=== PATIENT | female | born 1995 | race Caucasian/White ===

== ENCOUNTER 2018-08-30 03:16 | Emergency (ER) | payer OTHER, SELFPAY ==
[2018-08-30 03:31] VITALS: BP 145/84; PULSE 88; RESP 14; TEMP 36.5; O2SAT 98; BMI 24.3
[2018-08-30] MEDS: predniSONE 20 MG TABLET 40 MG PO (03:47)
[2018-08-30] MEDS: CYCLOBENZAPRINE 10 MG PREPACK 1 BOTTLE MISC (03:47)
--- NOTE | 2018-08-30 03:57 | ED_ITS ---
HPI - Back Pain/Injury General Chief Complaint: Back Pain/Injury Stated Complaint: hurt lower left back at work Time Seen by Provider: 08/30/18 03:25 Source: patient Mode of arrival: ambulatory Limitations: no limitations History of Present Illness HPI Narrative: 23-year-old female, smoker her complains of a work related injury resulting back pain. She states that she was lifting a patient at work and felt a pop in her back and a son radiation of pain down her left leg. She denies numbness, tingling or weakness. She denies any trouble bowel or bladder control. She denies any foot drop. She had a similar episode in April and received physical therapy for a few aches and then felt much better. MD Complaint: back pain Onset (ago): minute(s) Duration: constant Similar Symptoms Previously: Yes Location: lumbar spine Severity: moderate Quality: burning and stabbing Radiation: left leg Severity scale (1-10): 7 Relieving factors: immobilization Exacerbating factors: movement Context: while lifting Associated symptoms: denies other symptoms Treatments prior to arrival: NSAIDS Related Data Previous Rx's Medication Instructions Recorded diclofenac sodium 50 mg 50 mg PO BID #60 tab 05/21/18 tablet,delayed release methocarbamol 500 mg tablet 500 mg PO Q6H #30 tab 05/21/18 cyclobenzaprine 10 mg PO TID PRN #10 tab 08/30/18 ketorolac 10 mg PO Q6H PRN #14 tab 08/30/18 prednisone See Label Instructions .ROUTE 08/30/18 .COMPLEX #30 tab Allergies Allergy/AdvReac Type Severity Reaction Status Date / Time No Known Drug Allergies Allergy Unverified 05/21/18 15:52 Review of Systems Review of Systems All systems reviewed & are unremarkable except as noted in HPI and below Constitutional Denies chills, Denies fever(s), Denies lethargy and Denies weakness Eyes Denies change in vision, Denies eye discharge, Denies irritation and Denies loss of vision ENT Ears, Nose, Mouth, and Throat: Denies change in voice, Denies neck pain and Denies sore throat Cardiovascular Denies chest pain, Denies irregular heart rhythm, Denies lightheadedness, Denies palpitations, Denies dyspnea, Denies dyspnea on exertion and Denies orthopnea Respiratory Denies cough, Denies dyspnea, Denies dyspnea on exertion and Denies wheezing Gastrointestinal Gastrointestinal: Denies abdominal pain, Denies change in bowel habits, Denies diarrhea, Denies nausea and Denies vomiting Genitourinary Denies hematuria, Denies flank pain, Denies urinary incontinence and Denies urinary urgency Musculoskeletal Reports back pain and Denies neck pain Integumentary/Breasts Denies pruritus, Denies erythema, Denies rash and Denies wounds Neurologic Denies confusion, Denies loss of vision and Denies weakness Psychiatric Denies anxiety, Denies confusion, Denies depression, Denies homicidal ideation and Denies suicidal ideation Endocrine Denies palpitations Hematologic/Lymphatic Denies easy bruising Allergic/Immunologic Denies wheezing PFSH Social History Smoking Status: Current every day smoker Exam Narrative Exam Narrative: GEN: AOx3 and in mild distress EYES: Pupils are equal, round, and reactive to light and accommodation. Extraoccular muscles are intact bilaterally. There is no subconjunctival hemorrhage or exudate. CHEST: Lungs are clear to auscultation bilaterally and free of wheezes, rales, or rhonchi. Heart rate is regular rhythm, there are no murmurs, clicks, rubs, or gallops. There is no chest wall tenderness. ABD: Abdomen is soft and nontender. There is no guarding or rebound. Bowel sounds are normal in all 4 quadrants. There is no mass or organomegaly. EXT: Full painless ROM of all extremities with no loss of sensation or strength. SKIN: Warm, pink, and dry. 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 Patient exam notes decreased range of motion and muscle spasm, but no CVA tenderness, or vertebral point tenderness. There are no symptoms of cauda equina such as saddle anesthesia, and decreased reflexes, decreased sensation or strength. Initial Vital Signs Initial Vital Signs: Vital Signs Temperature 97.7 F 08/30/18 03:31 Pulse Rate 88 08/30/18 03:31 Respiratory Rate 14 08/30/18 03:31 Blood Pressure 145/84 H 08/30/18 03:31 Pulse Oximetry 98 10 03:31 Course Orders Ordered: Discontinued Medications Cyclobenzaprine HCl (Flexeril 10 Mg Prepack) 1 bottle [facility] [place] [facility] ONE Stop: 08/30/18 03:34 Last Admin: 08/30/18 03:47 Dose: 1 bottle Prednisone (Deltasone) 40 mg PO NOW ONE Stop: 08/30/18 03:34 Last Admin: 08/30/18 03:47 Dose: 40 mg Vital Signs - 8 hr 08/30/18 03:31 Temperature 97.7 F Pulse Rate 88 Respiratory Rate 14 Blood Pressure 145/84 H Pulse Oximetry 98 MDM - Back Pain/Injury Lab Data Point of Care Testing Test Results Negative Discharge Plan Departure Patient Disposition: Home Clinical Impression: Acute left lumbar radiculopathy Instructions: DI for Lumbar Radiculopathy Activity Restrictions/Additional Instructions: *You have been diagnosed with [ acute lumbar radiculopathy ] *What to do: *Take medications as directed: Prescriptions have been electronically transmitted to the [facility] at your request *Follow up with your primary care provider in 2-3 days, call for an appointment. Let them know you were seen in the Emergency Department and that we ask that you be seen in follow up *Return to ER if you should have any new, worsening or concerning symptoms Prescriptions: New prednisone 10 mg tablet See Label Instructions .ROUTE .COMPLEX Qty: 30 RF: 0 cyclobenzaprine 10 mg tablet 10 mg PO TID PRN (Reason: muscle spasm) Qty: 10 RF: 0 ketorolac 10 mg tablet 10 mg PO Q6H PRN (Reason: pain) Qty: 14 RF: 0 No Action methocarbamol 500 mg tablet 500 mg PO Q6H Qty: 30 RF: 0 diclofenac sodium 50 mg tablet,delayed release (DR/EC) 50 mg PO BID Qty: 60 RF: 0 Stand Alone Forms: Work/School Restrictions
== END 2018-08-30 03:57 | disposition home or self-care (01) ==
PROVIDERS: Emergency Provider Emergency Medicine
DX: M54.16 Radiculopathy, lumbar region (principal); X50.0XXA Overexertion from strenuous movement or load, initial encounter; Y99.0 Civilian activity done for income or pay
CPT/HCPCS: 81025; 99282; 99283

== ENCOUNTER 2019-03-18 04:18 | Emergency (ER) | payer OTHER, SELFPAY ==
[2019-03-18 04:29] VITALS: BP 137/78; PULSE 80; RESP 18; TEMP 36.6; O2SAT 98; BMI 25.8
--- NOTE | 2019-03-18 04:32 | ED.BACK ---
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 She states that she was trying to help a resident back into bed when the resident lost her balance and the patient called her. She states that she had pain in her left lower back. Has had this in the past. She states that it radiates down her leg. No loss of bowel or bladder. No fevers. Has not tried anything for symptoms prior to arrival Related Data Previous Rx's Medication Instructions Recorded diclofenac sodium 50 mg 50 mg PO BID #60 tab 05/21/18 tablet,delayed release methocarbamol 500 mg tablet 500 mg PO Q6H #30 tab 05/21/18 cyclobenzaprine 10 mg PO TID PRN #10 tab 08/30/18 ketorolac 10 mg PO Q6H PRN #14 tab 08/30/18 prednisone See Rx Instructions .ROUTE 08/30/18 .COMPLEX #30 tab cyclobenzaprine 10 mg PO TID PRN #12 tab 03/18/19 prednisone 40 mg PO DAILY 3 Days #6 tab 03/18/19 Allergies Allergy/AdvReac Type Severity Reaction Status Date / Time No Known Drug Allergies Allergy Unverified 05/21/18 15:52 Review of Systems Constitutional Denies fever(s) Cardiovascular Denies chest pain and Denies dyspnea Respiratory Denies dyspnea Gastrointestinal Gastrointestinal: Denies abdominal pain, Denies nausea and Denies vomiting Genitourinary Denies urinary incontinence and Denies urinary urgency Musculoskeletal Reports back pain, Reports radiating pain into limb and Reports tingling Integumentary/Breasts Denies rash Neurologic Reports tingling and Reports paresthesias Hematologic/Lymphatic Denies easy bleeding and Denies easy bruising [facility] Medical History Lower back pain (Acute) Social History Smoking Status: Current every day smoker Social History Smoking Status: Current every day smoker Exam Initial Vital Signs Initial Vital Signs: Vital Signs Temperature 98 F 03/18/19 04:29 Pulse Rate 80 03/18/19 04:29 Respiratory Rate 18 03/18/19 04:29 Blood Pressure 137/78 03/18/19 04:29 Pulse Oximetry 98 03/18/19 04:29 Const General: cooperative, well developed, well groomed and No acute distress Orientation: alert, awake and oriented x3 HENMT Head: normal to inspection and normocephalic Resp Effort & Inspection: normal respiratory effort Cardio Pulses: dorsalis pedis present on the left Back/Spine/Pelvis Thoracic/Lumbar Spine: paraspinal tenderness, No thoracic spinal tenderness, lumbar spinal tenderness and straight leg raise positive Sacroiliac Joints: tender to palpation left Skin Lesions: no lesions Rashes: no rashes Neuro General: alert, awake and oriented x3 Cognition: normal cognition Speech: speech normal Extrem General: capillary refill normal Course Orders Ordered: Discontinued Medications Ketorolac Tromethamine (Toradol) 30 mg IM NOW ONE Stop: 03/18/19 04:33 Vital Signs - 8 hr 03/18/19 04:29 Temperature 98 F Pulse Rate 80 Respiratory Rate 18 Blood Pressure 137/78 Pulse Oximetry 98 MDM - Back Pain/Injury MDM Narrative Medical decision making narrative: Patient has had a prior history of left-sided lumbar strain with radiculopathy. She presents today with similar symptoms with that. No red flag symptoms concerning for cauda equina or fracture or epidural hematoma or abscess. Was given a shot of Toradol here in the emergency department. Will send home with a short course of steroids and muscle relaxers. Patient was given care instructions and return precautions. She expressed understanding and agreement with plan. Discharge Plan Departure Patient Disposition: Home Clinical Impression: Strain of lumbar region, Lumbar radiculopathy Instructions: DI for Back Pain With Sciatica, Activity May Be Better then Rest for Low Back Pain Recovery Activity Restrictions/Additional Instructions: You do need to stay as active as possible. The majority of back pain will improve on its own take the pain medication as needed as directed contact her primary care doctor for follow-up. Return to the emergency department for any new or worsening symptoms Prescriptions: New cyclobenzaprine 10 mg tablet 10 mg PO TID PRN (Reason: muscle spasm) Qty: 12 RF: 0 prednisone 20 mg tablet 40 mg PO DAILY 3 Days Qty: 6 RF: 0 No Action methocarbamol 500 mg tablet 500 mg PO Q6H Qty: 30 RF: 0 diclofenac sodium 50 mg tablet,delayed release (DR/EC) 50 mg PO BID Qty: 60 RF: 0 prednisone 10 mg tablet See Rx Instructions .ROUTE .COMPLEX Qty: 30 RF: 0 cyclobenzaprine 10 mg tablet 10 mg PO TID PRN (Reason: muscle spasm) Qty: 10 RF: 0 ketorolac 10 mg tablet 10 mg PO Q6H PRN (Reason: pain) Qty: 14 RF: 0
[2019-03-18] MEDS: KETOROLAC 60 MG/2 ML VIAL 30 MG IM (04:43)
[2019-03-18 05:34] VITALS: BP 129/79; PULSE 76; RESP 20; O2SAT 99
== END 2019-03-18 05:35 | disposition home or self-care (01) ==
PROVIDERS: Emergency Provider Emergency Medicine
DX: S39.012A Strain of muscle, fascia and tendon of lower back, initial encounter (principal); M54.16 Radiculopathy, lumbar region; Y99.0 Civilian activity done for income or pay
CPT/HCPCS: 96372; 99282; 99283; J1885

== ENCOUNTER 2020-11-01 01:49 | Emergency (ER) | payer OTHER, SELFPAY ==
[2020-11-01 01:55] VITALS: BP 132/67; PULSE 98; RESP 17; TEMP 36.8; O2SAT 98; BMI 22.1
--- NOTE | 2020-11-01 02:01 | ED.GENADULT ---
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 Has had issues like this in the past. I evaluated approximately 1 year ago for similar symptoms. She states she has constant pain in the lower back with radiculopathy however this evening things soon to have gotten worse after this particular incident. Has not tried anything for the pain prior to arrival Related Data Previous Rx's Medication Instructions Recorded diclofenac sodium 50 mg 50 mg PO BID #60 tab 05/21/18 tablet,delayed release methocarbamol 500 mg tablet 500 mg PO Q6H #30 tab 05/21/18 cyclobenzaprine 10 mg PO TID PRN #10 tab 08/30/18 ketorolac 10 mg PO Q6H PRN #14 tab 08/30/18 prednisone See Rx Instructions .ROUTE 08/30/18 .COMPLEX #30 tab cyclobenzaprine 10 mg PO TID PRN #12 tab 03/18/19 cyclobenzaprine 10 mg PO TID PRN #12 tab 11/01/20 prednisone 20 mg PO DAILY 4 Days #4 tab 11/01/20 Allergies Allergy/AdvReac Type Severity Reaction Status Date / Time No Known Drug Allergies Allergy Unverified 05/21/18 15:52 Review of Systems Constitutional Constitutional: Denies fever(s) Cardiovascular Cardiovascular: Denies chest pain and Denies dyspnea Respiratory Respiratory: Denies dyspnea Gastrointestinal Gastrointestinal: Denies abdominal pain Musculoskeletal Musculoskeletal: Reports back pain and Reports tingling Integumentary/Breasts Skin/Breast: Denies rash Neurologic Neurologic: Reports radicular pain and Reports tingling Hematologic/Lymphatic Hematologic/Lymphatic: Denies easy bleeding and Denies easy bruising Allergic/Immunologic Allergic/Immunologic: Denies urticaria Patient History Medical History (Updated 11/01/20 @ 02:24 by Sushil Parks DO) Lower back pain Social History Smoking Status: Current every day smoker Smoking Status: Current every day smoker alcohol intake frequency: 0-2 drinks per day Substance Use Type: marijuana Exam Initial Vital Signs Initial Vital Signs: Vital Signs Temperature 98.3 F 11/01/20 01:55 Pulse Rate 98 H 11/01/20 01:55 Respiratory Rate 17 11/01/20 01:55 Blood Pressure 132/67 11/01/20 01:55 Pulse Oximetry 98 11/01/20 01:55 Const General: cooperative and comfortable Limitations: mental status not altered HENMT Head: normal to inspection and normocephalic Back/Spine/Pelvis Back: No CVA tenderness Thoracic/Lumbar Spine: paraspinal tenderness (Right-sided), No thoracic spinal tenderness and No lumbar spinal tenderness Sacroiliac Joints: tender to palpation right Skin Lesions: no lesions Rashes: no rashes Neuro General: patient alert and patient awake Cognition: normal cognition Speech: speech normal Extrem General: capillary refill normal Psych Appearance: grossly normal and well kempt Scores GCS Welcome coma scale eye opening: Spontaneous Thalia coma scale verbal response: Orientated Thalia coma scale motor response: Obey commands Welcome coma scale total score: 15 Course Orders Ordered: Discontinued Medications Ketorolac Tromethamine (Ketorolac 60 Mg/2 Ml Vial) 30 mg IM NOW ONE Stop: 11/01/20 02:02 Last Admin: 11/01/20 02:11 Dose: 30 mg Documented by: Prednisone (Prednisone 20 Mg Tablet) 20 mg PO NOW ONE Stop: 11/01/20 02:15 Last Admin: 11/01/20 02:22 Dose: 20 mg Documented by: Vital Signs Vital signs: Vital Signs - 8 hr 11/01/20 01:55 Temperature 98.3 F Pulse Rate 98 H Respiratory Rate 17 Blood Pressure 132/67 Pulse Oximetry 98 Medical Decision Making [facility] Narrative Medical decision making narrative: Suspect musculoskeletal. Low suspicion for cauda equina based on history and physical. Last time patient was in the emergency department was given Toradol and sent home with a short course of steroids which he states helped her symptoms along with physical therapy. I feel that we can hold on radiologic studies. Patient given return precautions. She expressed understanding and agreement. Discharge Plan Departure Patient Disposition: Home Clinical Impression: Strain of lumbar region Qualifiers: Encounter type: initial encounter Qualified Code(s): S39.012A - Strain of muscle, fascia and tendon of lower back, initial encounter Instructions: DI for Back Strain or Sprain Activity Restrictions/Additional Instructions: Recommend talk with your primary provider about follow-up to include physical therapy. Take the medications as directed now also recommend that you continue on an anti-inflammatory such as Motrin or Naprosyn. You can purchase these [id number]. Return to the emergency department for any new symptoms Prescriptions: New prednisone 20 mg tablet 20 mg PO DAILY 4 Days Qty: 4 RF: 0 cyclobenzaprine 10 mg tablet 10 mg PO TID PRN (Reason: muscle spasm) Qty: 12 RF: 0 No Action methocarbamol 500 mg tablet 500 mg PO Q6H Qty: 30 RF: 0 diclofenac sodium 50 mg tablet,delayed release (DR/EC) 50 mg PO BID Qty: 60 RF: 0 prednisone 10 mg tablet See Rx Instructions .ROUTE .COMPLEX Qty: 30 RF: 0 cyclobenzaprine 10 mg tablet 10 mg PO TID PRN (Reason: muscle spasm) Qty: 10 RF: 0 ketorolac 10 mg tablet 10 mg PO Q6H PRN (Reason: pain) Qty: 14 RF: 0 cyclobenzaprine 10 mg tablet 10 mg PO TID PRN (Reason: muscle spasm) Qty: 12 RF: 0
[2020-11-01] MEDS: KETOROLAC 60 MG/2 ML VIAL 30 MG IM (02:11)
[2020-11-01] MEDS: predniSONE 20 MG TABLET PO (02:22)
[2020-11-01 02:29] VITALS: BP 143/79; PULSE 73; RESP 18; O2SAT 99
== END 2020-11-01 02:44 | disposition home or self-care (01) ==
PROVIDERS: Emergency Provider Emergency Medicine
DX: S39.012A Strain of muscle, fascia and tendon of lower back, initial encounter (principal); R20.2 Paresthesia of skin; Y93.F2 Activity, caregiving, lifting; Y99.0 Civilian activity done for income or pay
CPT/HCPCS: 96372; 99281; 99283; J1885